=== PATIENT | male | born 1990 | race Two or more races ===

== ENCOUNTER 2018-11-13 16:18 | Emergency (ER) | payer OTHER ==
[~2018-11-13] VITALS: Ht 180.3 cm; Wt 106.6 kg
--- NOTE | 2018-11-13 16:33 | NUR ---
[facility], W C/O NECK SPASMS AND ABDOMINAL CRAMPING SINCE THIS AM. 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
--- NOTE | 2018-11-13 16:40 | NUR ---
DR LUNDBERG AT BEDSIDE FOR EVAL.
[2018-11-13] MEDS ORDERED: DIAZEPAM 5 MG TABLET ONE (16:48)
--- NOTE | 2018-11-13 16:53 | NUR ---
Note gordon in EDM - 11/13/18 at 1655 by [facility], W C/O NECK SPASMS AND ABDOMINAL CRAMPING SINCE THIS AM. 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
[2018-11-13] MEDS ORDERED: DIAZEPAM 5 MG TABLET PO ONE (17:00)
--- NOTE | 2018-11-13 17:03 | NUR ---
PT ON SEVERE NECK CRAMPS AND ABDOMINAL PAIN, ALSO DIAPHORETIC. MADE MD AWARE
--- NOTE | 2018-11-13 17:07 | NUR ---
[employer]IDE [employer] DEGRASSE AT BEDSIDE
--- NOTE | 2018-11-13 17:09 | NUR ---
DR LUNDBERG AT BEDSIDE.
[2018-11-13 17:28] LABS: BASOPHILS % (AUTO) 0.2 % (0.0-2.0); HEMATOCRIT 45 % (39-51); LYMPHOCYTES # (AUTO) 1.8 /CMM (0.8-4.8); LYMPHOCYTES % (AUTO) 11.8 % (20.0-44.0); MEAN CORPUSCULAR HGB CONC 34 g/dl (31.0-36.0); MEAN CORPUSCULAR VOLUME 91 fL (80-96); MONOCYTES # (AUTO) 0.7 /CMM (0.1-1.30); MONOCYTES % (AUTO) 4.6 % (2.0-12.0); NEUTROPHILS # (AUTO) 12.7 /CMM (1.8-8.9); NEUTROPHILS % (AUTO) 83.4 % (43.0-81.0); PLATELET COUNT (AUTO) 293 /CMM (150-450); RED BLOOD CELL COUNT(AUTO) 4.92 MIL/uL (4.5-6.0); WHITE BLOOD COUNT (AUTO) 15.2 K/uL (4.3-11.0)
[2018-11-13] MEDS ORDERED: LORAZEPAM INJ 2 MG/ML VIAL ONE (17:30)
[2018-11-13] MEDS ORDERED: LORAZEPAM INJ 2 MG/ML VIAL IV ONE (17:30)
[2018-11-13] MEDS ORDERED: ONDANSETRON HCL/PF 4 MG/2 ML VIAL ONE (17:30)
[2018-11-13] MEDS ORDERED: HYDROMORPHONE INJ 2 MG/ML DISP.SYRIN IV ONE (17:30)
[2018-11-13] MEDS ORDERED: ONDANSETRON HCL/PF 4 MG/2 ML VIAL IVP ONE (17:30)
[2018-11-13] MEDS ORDERED: IV NS 0.9% 1,000 ML BAG IV ONE ×2 (17:30→20:00)
[2018-11-13] MEDS ORDERED: HYDROMORPHONE 1 MG/1 ML DISP.SYRIN ONE (17:30)
[2018-11-13 17:39] LABS: ALBUMIN 4.7 g/dL (3.4-5.0); BILIRUBIN,DIRECT 0.1 mg/dL (0.0-0.2); BILIRUBIN,TOTAL 0.2 mg/dL (0.2-1.0); CREATININE 1.3 mg/dL (0.6-1.3); POTASSIUM 3.9 mmol/L (3.5-5.1); TOTAL PROTEIN, SERUM 8.7 g/dL (6.4-8.2)
--- NOTE | 2018-11-13 17:50 | NUR ---
PT NOT ABLE TO PROVIDE URINE SAMPLE. 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
--- NOTE | 2018-11-13 18:45 | NUR ---
URINE SAMPLE SENT TO LAB
[2018-11-13 19:02] LABS: APPEARANCE,URINE Slightly Cloudy (CLEAR); BILIRUBIN,URINE Negative (NEGATIVE); BLOOD, URINE Moderate Ery/uL (NEGATIVE); COLOR,URINE Yellow (YELLOW); KETONES,URINE 15 (NEGATIVE); LEUKOCYTE ESTERASE ,URINE Negative (NEGATIVE); NITRITE, URINE Negative (NEGATIVE); PH,URINE 5.5 (5.0-8.0); PROTEIN,URINE Trace mg/dl (NEGATIVE); UGLUCOSE Negative (NEGATIVE); UROBILINOGEN,URINE 0.2 EU/dL (0.2)
[2018-11-13 19:14] LABS: BACTERIA,URINE Few /HPF (None Seen); SQUAMOUS EPITHELIAL CELL,UR Few /HPF (None Seen); WBC,URINE 0-2 /HPF (0-3)
--- NOTE | 2018-11-13 19:22 | NUR ---
PT IN BED COMFORTABLE, NAD, HOOKED TO MONITOR, VERBALIZED "FEELING MUCH BETTER NOW", WILL CONTINUE TO MONITOR.
--- NOTE | 2018-11-13 21:00 | NUR ---
IV removed. Catheter intact and site benign. Pressure and 4x4 applied to site. No bleeding noted.Patient discharged in custody of [facility] in stable condition. Written and verbal after care instructions given. Patient verbalizes understanding of instruction.
[2018-11-13 21:02] VITALS: BP 142/101
== END 2018-11-13 21:04 ==
LOC: ER 16:22
DX: M54.6 Pain in thoracic spine (principal); F41.9 Anxiety disorder, unspecified; R00.0 Tachycardia, unspecified
CPT/HCPCS: 36415; 80048; 80076; 80305; 81001; 82550; 85025; 93005; 96374; 96375; 99284; A4606; J1170; J2060; J2405; J7030 ×2; 81000-TC